=== PATIENT | female | born 1985 | race Two or more races ===

== ENCOUNTER 2024-07-24 13:54 | Emergency (ER) | payer MEDICAID, SELFPAY ==
[2024-07-24 13:55] VITALS: BMI 35.3
[2024-07-24 14:09] VITALS: BP 122/78; PULSE 77; RESP 18; TEMP 37.2; O2SAT 98
--- NOTE | 2024-07-24 14:39 | XR_ITS ---
Examination: PA lateral chest 2 views Technique: Upright PA lateral chest 2 views Exam date 9: July 24, 2024, 1449 hrs. Comparison July 20, 2022. Indications: Chest pain beginning 5 days ago. Findings: Normal heart size Minor atelectasis left base No pneumonia or pulmonary edema Stable tiny granuloma right upper lobe Impression: Minor atelectasis left base No pneumonia or pulmonary edema
--- NOTE | 2024-07-24 14:41 | PD.EDBACK ---
ED Back Injury Pain RME/HPI General Chief Complaint: Back Pain/Injury Stated Complaint: CHEST/BACK PAIN SINCE WITH NAUSEA Time Seen by Provider: 07/24/24 13:56 Arrival date/time: 07/24/24 13:54 This is a 38-year-old female that comes in with complaint of chest pain and nausea that started a couple days ago. Patient states that she was having a cough and shortness of breath and was seen by her primary doctor and was given albuterol and prednisone. Patient states those symptoms are better but she still having some chest pain. Patient also complains of nausea. Patient denies any past medical history. Related Data Home Medications ?Medication ?Instructions ?Recorded ?Confirmed amoxicillin 500 mg capsule 500 mg PO BID 07/20/22 07/20/22 clarithromycin 500 mg tablet 500 mg PO BID 07/20/22 07/20/22 escitalopram oxalate 10 mg tablet 10 mg PO QDAY 07/20/22 07/20/22 ibuprofen 800 mg tablet 800 mg PO Q8H PRN Pain 07/20/22 07/20/22 omeprazole 20 mg capsule,delayed 20 mg PO BID 07/20/22 07/20/22 release pseudoephedrine HCl 30 mg tablet 30 mg PO Q6H PRN Allergy Symptoms 07/20/22 07/20/22 (Sudafed) Previous Rx's ?Medication ?Instructions ?Recorded ondansetron 4 mg disintegrating 4 mg PO Q8H PRN nausea and 10/14/23 tablet vomiting #30 tabs kgvkysjalp-odyoetbrnokpx-nxpsmqxt 1 cap PO Q6H PRN headache #30 caps 12/07/23 50 mg-300 mg-40 mg capsule (Fioricet) ibuprofen 600 mg tablet 600 mg PO Q6H PRN pain #30 tabs 12/07/23 ibuprofen 600 mg tablet 600 mg PO TID PRN pain #14 tabs 12/07/23 ondansetron 4 mg disintegrating 4 mg PO Q6H PRN nausea and 12/07/23 tablet vomiting #10 tabs ibuprofen 800 mg tablet 800 mg PO Q6H PRN pain #14 tabs 07/24/24 Allergies Allergy/AdvReac Type Severity Reaction Status Date / Time quetiapine Allergy Severe Swelling Verified 07/24/24 13:58 of Lip/Tongue/Throat Course Orders Category Date Time Status EKG (ED ONLY) *Do not use* NOW Care 07/24/24 14:39 Completed EKG (ED Only) Stat Exams 07/24/24 14:39 Ordered XR chest 2V Stat Exams 07/24/24 14:39 Completed HCG Qualitative,Urine Stat Lab 07/24/24 15:04 Completed Urinalysis, C/S if Indicated Stat Lab 07/24/24 15:04 Completed Ibuprofen Tab [Motrin Tab] Med 07/24/24 14:41 Discontinued 800 mg PO X1 ONE Ondansetron Odt [Zofran Odt] Med 07/24/24 14:40 Discontinued 4 mg PO X1 ONE Vital Signs Vital signs: Vital Signs Temperature 98.9 F 07/24/24 14:09 Pulse Rate 77 07/24/24 14:09 Respiratory Rate 18 07/24/24 14:09 Blood Pressure 122/78 07/24/24 14:09 Pulse Oximetry (%) 98 07/24/24 14:09 Oxygen Delivery Method Room Air 07/24/24 14:09 Back Pain / Injury MDM Narrative MDM Narrative:: chest x ray shows: Findings: Normal heart size Minor atelectasis left base No pneumonia or pulmonary edema Stable tiny granuloma right upper lobe Impression: Minor atelectasis left base No pneumonia or pulmonary edema No pneumonia seen on x-ray. Patient given Tylenol and ibuprofen for pain. Patient told to continue taking steroids as prescribed by primary provider. Follow-up with primary provider in 1 to 2 days. Come back to the emergency room symptoms change or worsen Medications / Prescriptions Medication administrations:: Medication Administration History Discontinued Medications Ibuprofen (Ibuprofen Tab 400 Mg Tablet) 800 mg PO X1 ONE Stop: 07/24/24 14:42 Last Admin: 07/24/24 15:04 Dose: 800 mg Documented By: ESPERANZA Ondansetron HCl (Ondansetron Odt 4 Mg Tabrap) 4 mg PO X1 ONE; Protocol Stop: 07/24/24 14:41 Last Admin: 07/24/24 15:04 Dose: 4 mg Documented By: ESPERANZA Discharge Plan Plan Patient Disposition: HOME (Self Care) Patient condition on transfer: Stable Prescriptions/Referrals Prescriptions/Med Rec: New ibuprofen 800 mg tablet 800 mg PO Q6H PRN (Reason: pain) Qty: 14 0RF No Action amoxicillin 500 mg Capsule 500 mg PO BID ibuprofen 800 mg Tablet 800 mg PO Q8H PRN (Reason: Pain) clarithromycin 500 mg Tablet 500 mg PO BID omeprazole 20 mg Capsule,Delayed Release(Dr/Ec) 20 mg PO BID pseudoephedrine HCl [Sudafed] 30 mg Tablet 30 mg PO Q6H PRN (Reason: Allergy Symptoms) escitalopram oxalate 10 mg Tablet 10 mg PO QDAY pfwrstsiko-triskzovocstg-pthj [Fioricet] 50-300-40 mg capsule 1 cap PO Q6H PRN (Reason: headache) Qty: 30 0RF ibuprofen 600 mg tablet 600 mg PO Q6H PRN (Reason: pain) Qty: 30 0RF ondansetron 4 mg tablet,disintegrating 4 mg PO Q6H PRN (Reason: nausea and vomiting) Qty: 10 0RF ondansetron 4 mg tablet,disintegrating 4 mg PO Q8H PRN (Reason: nausea and vomiting) Qty: 30 0RF ibuprofen 600 mg tablet 600 mg PO TID PRN (Reason: pain) Qty: 14 0RF Referrals: Jessica Carroll FNP [Primary Care Provider] - In 1 week Problem List Clinical Impression: RAD (reactive airway disease), URI (upper respiratory infection) Patient/Caregiver Discharge Instructions Discharge Activity: activity as tolerated Education Materials: ED URI, Viral, No Abx (Adult) Additional Instructions: Continue using inhaler and steroids as directed. Follow-up with primary provider in 1 to 2 days. Come back to the emergency room if symptoms change or worsen Print Language: Nepali Stand Alone Forms: Faye Award Info., Patient Portal Info Letter VANDANA/JESSENIA Supervising Physician VANDANA/JESSENIA Supervising Physician: guerline
[2024-07-24] MEDS: ONDANSETRON ODT 4 MG TABRAP PO (15:04)
[2024-07-24] MEDS: IBUPROFEN TAB 400 MG TABLET 800 MG PO (15:04)
[2024-07-24 15:17] LABS: Collection Type, Urine Pedi-Bag
[2024-07-24 15:27] LABS: Bacteria,Urine Rare; Bilirubin,Urine Negative (Negative); Blood,Urine Negative (Negative); Clarity,Urine Clear (Clear/Hazy); Color,Urine Lt-Yellow (Lt Yel-Yel); Culture Indicated,Urine Not Indicated; Glucose, Urine Negative (Negative); Ketones,Urine Negative (Negative); Leukocyte Esterase,Urine Positive (Negative); Nitrite,Urine Negative (Negative); PH,Urine 6.5 (5.0-7.0); Protein,Urine Negative (Neg - Trace); RBC,Urine 3 /hpf (0-3); Specific Gravity,Urine 1.016 (1.001-1.035); Squamous Epithelial Cell,Urine 2 /hpf (0-5); Urobilinogen,Urine Negative mg/dL (0.0-1.0); WBC,Urine 2 /hpf (0-5)
[2024-07-24 15:35] LABS: HCG Qualitative,Urine Positive
== END 2024-07-24 15:55 | disposition home or self-care (01) ==
PROVIDERS: Nurse Practitioner Family; Emergency Provider Emergency Medicine; PCP Registered Nurse
DX: J45.909 Unspecified asthma, uncomplicated (principal); J06.9 Acute upper respiratory infection, unspecified
CPT/HCPCS: 71046; 81001; 81025; 87400; 87811; 93005; 99283; Q0162; A9270

== ENCOUNTER 2024-08-06 13:44 | Emergency (ER) | payer MEDICAID, SELFPAY ==
[2024-08-06 14:22] VITALS: BP 118/80; PULSE 76; RESP 18; TEMP 37.2; O2SAT 96; BMI 32.3
--- NOTE | 2024-08-06 14:29 | PD.EDRME ---
Rapid Medical Screening Exam RME Arrival date/time: 08/06/24 13:44 This is a 38-year-old female that comes in with complaints of vaginal bleeding and abdominal pain. Patient was recently told that she was approximately 5 weeks . Patient thinks her last menstrual period was June 23. Patient is a 6 para 3 patient has had 2 previous miscarriages. I have greeted and performed a focused initial assessment of this patient. Initial appropriate labs ordered at this time. A comprehensive ED assessment and evaluation of the patient and analysis of all test and completion of medical decision making process will be conducted by additional ED provider. Chief Complaint: Vaginal Bleeding Time Seen by Provider: 08/06/24 13:51 Vital signs: Vital Signs Temperature 99 F 08/06/24 14:22 Pulse Rate 76 08/06/24 14:22 Respiratory Rate 18 08/06/24 14:22 Blood Pressure 118/80 08/06/24 14:22 Pulse Oximetry (%) 96 08/06/24 14:22 Oxygen Delivery Method Room Air 08/06/24 14:22
--- NOTE | 2024-08-06 14:30 | XR_ITS ---
Examination: OB Transvaginal ultrasound of the pelvis, complete Technique: Transvaginal sonographic images pelvis performed using hdez scale imaging Exam date and time: August 06, 2024 1617 hours INDICATIONS: Onset of vaginal bleeding today FINDINGS: Uterus 9.4 cm endometrial stripe endometrial stripe 0.8 cm No uterine mass or intrauterine gestation Right ovary 2.4 cm lateral flow Left ovary 2.7 cm arterial flow IMPRESSION: No uterine or adnexal mass
[2024-08-06 15:07] LABS: Collection Type, Urine Voided
[2024-08-06 15:31] LABS: Alanine Aminotransferase 15 U/L (10-49); Albumin/Globulin Ratio 1.4 (1.2-2.2); Alkaline Phosphatase 72 U/L (46-116); Anion Gap 10 (7-16); Aspartate Amino Transferase 17 U/L (0-34); BUN/Creatinine Ratio 12 Ratio (12-20); Beta HCG,Quantitative 105 mIU/mL (<5.0); Bilirubin,Total 0.5 mg/dL (0.3-1.2); Blood Urea Nitrogen 7 mg/dL (9-23); Calcium 9.3 mg/dL (8.3-10.6); Calcium (Corrected) 9.3 mg/dL (8.5-10.1); Carbon Dioxide 21.7 mMol/L (20.0-31.0); Chloride 110 mMol/L (98-107); Creatinine (Component) 0.6 mg/dL (0.6-1.3); Globulin 2.9 gm/dL (2.3-3.5); Glucose 116 mg/dL (74-106); Osmolality,Calculated 282 (275-295); Sodium 142 mMol/L (136-145); Total Protein 6.9 gm/dL (5.7-8.2); eGFR > 60 See Note
[2024-08-06 15:32] LABS: Basophils # (Auto) 0.1 Thou/mm3 (0.0-0.2); Basophils % (Auto) 1 % (0-2.5); Eosinophils # (Auto) 0.1 Thou/mm3 (0.0-0.5); Eosinophils % (Auto) 1 % (0-10); Hematocrit 38.2 % (36.0-46.0); Hemoglobin 13.5 g/dL (12.0-16.0); Immature Granulocytes % (Auto) 0 % (0-0); Immature Granulocytes Auto 0.03 Thou/mm3 (0.00-0.00); Lymphocytes # (Auto) 2.3 Thou/mm3 (1.0-4.8); Lymphocytes % (Auto) 22 % (10-50); Mean Corpuscular HGB Conc 35.3 g/dl (31.0-37.0); Mean Corpuscular Volume 85 fL (80-100); Monocytes # (Auto) 0.8 Thou/mm3 (0.0-0.8); Monocytes % (Auto) 8 % (0-12); Neutrophils # (Auto) 7.1 Thou/mm3 (1.8-7.7); Neutrophils % (Auto) 68 % (37-80); Nucleated Red Blood Cell % 0 /100 WBC (0); Platelet Count 262 Thou/mm3 (140-440); RDW Standard Deviation 42.4 fL (36.4-46.3); White Blood Count 10.4 Thou/mm3 (3.6-11.0)
[2024-08-06 16:27] LABS: Bilirubin,Urine Negative (Negative); Blood,Urine 3+ (Negative); Clarity,Urine Turbid (Clear/Hazy); Color,Urine Yellow (Lt Yel-Yel); Culture Indicated,Urine Not Indicated; Glucose, Urine Negative (Negative); Ketones,Urine Negative (Negative); Leukocyte Esterase,Urine Positive (Negative); Nitrite,Urine Negative (Negative); Protein,Urine 1+ (Neg - Trace); RBC,Urine 1031 /hpf (0-3); Specific Gravity,Urine 1.029 (1.001-1.035); Squamous Epithelial Cell,Urine 3 /hpf (0-5); Urobilinogen,Urine Negative mg/dL (0.0-1.0); WBC,Urine 9 /hpf (0-5)
[2024-08-06 16:44] VITALS: BP 117/78; PULSE 66; RESP 18; TEMP 36.8; O2SAT 99
[2024-08-06 18:45] VITALS: BP 113/75; PULSE 61; RESP 18; TEMP 36.8; O2SAT 98
[2024-08-06 19:24] VITALS: BP 122/74; PULSE 60; RESP 16; TEMP 36.7; O2SAT 99
--- NOTE | 2024-08-06 19:44 | PD.EDVAGBL ---
ED OB Contraction Preg RMI/HPI General Chief complaint: Vaginal Bleeding Stated complaint: VAGINAL BLEEDING AM PAIN X YESTERDAY; 5 WKS PREG Time Seen by Provider: 08/06/24 13:51 Arrival date/time: 08/06/24 13:44 RME / HPI RME / HPI Narrative: This is a 38-year-old female with past medical history of spontaneous abortions that comes in with complaints of vaginal bleeding and abdominal pain for 1 day. Patient had visited her PCP, where her beta-hCG test was positive, and underwent transvaginal ultrasound, and was not found to have any intrauterine by the ultrasound today, and was told by cell phone repair technician that she might be having ectopic . However, she did not receive any official read by her PCP. This morning, when she started vaginal bleeding, she also noticed a different type of small mass exposing out of her vagina, which she believes is most likely the fetus. She has changed 2 tampons until now. She admitted urinary frequency, and urgency. She denies any headache, lightheadedness, nausea or vomiting, chest pain, SOB, any changes in bowel habit, leg swelling, fever or chills, or any vomiting. Related Data Home Medications ?Medication ?Instructions ?Recorded ?Confirmed amoxicillin 500 mg capsule 500 mg PO BID 07/20/22 07/20/22 clarithromycin 500 mg tablet 500 mg PO BID 07/20/22 07/20/22 escitalopram oxalate 10 mg tablet 10 mg PO QDAY 07/20/22 07/20/22 ibuprofen 800 mg tablet 800 mg PO Q8H PRN Pain 07/20/22 07/20/22 omeprazole 20 mg capsule,delayed 20 mg PO BID 07/20/22 07/20/22 release pseudoephedrine HCl 30 mg tablet 30 mg PO Q6H PRN Allergy Symptoms 07/20/22 07/20/22 (Sudafed) Previous Rx's ?Medication ?Instructions ?Recorded ondansetron 4 mg disintegrating 4 mg PO Q8H PRN nausea and 10/14/23 tablet vomiting #30 tabs baxpztyyvx-brugsmhdwgwpx-lmnrwbix 1 cap PO Q6H PRN headache #30 caps 12/07/23 50 mg-300 mg-40 mg capsule (Fioricet) ibuprofen 600 mg tablet 600 mg PO Q6H PRN pain #30 tabs 12/07/23 ibuprofen 600 mg tablet 600 mg PO TID PRN pain #14 tabs 12/07/23 ondansetron 4 mg disintegrating 4 mg PO Q6H PRN nausea and 12/07/23 tablet vomiting #10 tabs ibuprofen 800 mg tablet 800 mg PO Q6H PRN pain #14 tabs 07/24/24 Allergies Allergy/AdvReac Type Severity Reaction Status Date / Time quetiapine Allergy Severe Swelling Verified 08/06/24 13:47 of Lip/Tongue/Throat Review of Systems Review of Systems Systems Reviewed: All systems reviewed, normal except as documented Past Medical History Past Medical History NEUROLOGIC: Positive Migraine; Negative Neurological Disorders, Cerebrovascular Accident or Transient Ischemic Attacks (TIA) CARDIAC: Negative Cardiac Disorders, Myocardial Infarction, Cardiac Arrhythmia or Congestive Heart Failure RESPIRATORY: Positive Pneumonia; Negative Chronic Obstructive Pulmonary Disease (COPD) or Asthma GASTROINTESTINAL: Positive Gastrointestinal Disorders and Gastroesophageal Reflux Disease (H. Pylori); Negative Liver Cancer or Pancreatic Cancer GENITOURINARY: Negative Genitourinary Disorders or Renal Disease REPRODUCTIVE: Negative Breast Cancer or Endometriosis MUSCULOSKELETAL: Negative Musculoskeletal Disorders ENT: Negative Blind or Deafness ENDOCRINE: Negative Endocrine Disorders, Diabetes Mellitus Type 1 or Diabetes Mellitus Type 2 HEMATOLOGIC: Negative Blood Disorders, Anemia or Sickle Cell Disease PSYCHO/SOCIAL: Positive Depression and Anxiety OTHER HISTORY: Negative Down Syndrome, Developmental Delay or Breast Cancer Social History SMOKING STATUS: Never smoker SUBSTANCE USE: does not use ED Exam Narrative Physical exam: General: No acute distress, Alert and Oriented x 3 HEENT: Moist mucous membranes, oropharynx clear Neck: Supple, No masses, No JVD CVS: S1S2 Regular rate and rhythm, No murmurs, rubs or gallops Lungs: Clear to auscultation with no accessory use, no wheeze no rhonchi Abd: Soft, mild to moderate tenderness over right lower quadrant/ND, +BS, no organomegaly Ext: No edema, warm and well perfused Skin: No rash Psych: Appropriate mood and affect Course Quality Measures none Orders Category Date Time Status US OB transvaginal Stat Exams 08/06/24 14:30 Completed ABO/RH Type - Stat Lab 08/06/24 14:48 Completed Beta HCG,Quantitative Stat Lab 08/06/24 14:48 Completed CBC Stat Lab 08/06/24 14:48 Completed Comprehensive Metabolic Panel Stat Lab 08/06/24 14:48 Completed Urinalysis, C/S if Indicated Stat Lab 08/06/24 14:59 Completed Vital Signs Vital signs: Vital Signs Temperature 99 F 08/06/24 14:22 Pulse Rate 76 08/06/24 14:22 Respiratory Rate 18 08/06/24 14:22 Blood Pressure 118/80 08/06/24 14:22 Pulse Oximetry (%) 96 08/06/24 14:22 Oxygen Delivery Method Room Air 08/06/24 14:22 Vaginal Bleeding MDM Narrative MDM Narrative: This is a 38-year-old female with past medical history of spontaneous abortions that comes in with complaints of vaginal bleeding and abdominal pain for 1 day. Patient had visited her PCP, where her beta-hCG test was positive, and underwent transvaginal ultrasound, and was not found to have any intrauterine by the ultrasound today, and was told by cell phone repair technician that she might be having ectopic . However, she did not receive any official read by her PCP. This morning, when she started vaginal bleeding, she also noticed a different type of small mass exposing out of her vagina, which she believes is most likely the fetus. She has changed 2 tampons until now. She admitted urinary frequency, and urgency. She denies any headache, lightheadedness, nausea or vomiting, chest pain, SOB, any changes in bowel habit, leg swelling, fever or chills, or any vomiting. In the ED her vitals were BP 118/80, pulse 76, RR 18, temperature 99, saturating 96% on room air. Labs revealed white count 10.4, hemoglobin 13.5, chemistry panel revealed sodium 142, potassium 4.0, chloride 110, blood sugar 116, and beta-hCG 105. UA revealed turbid urine with 1+ protein, 3+ blood, leukocyte esterase positive, RBC 1031, WBC 9. Transvaginal ultrasound revealed No uterine or adnexal mass. Patient data External records reviewed:: [facility] previous records Clinical information provided by:: patient Social determinants that could affect healthcare access:: none Patient has the following chronic illnesses:: See above How is presenting disease/condition affected by chronic disease/condition?: uneffected by Evaluation data The following diagnostics were reviewed and interpreted by me:: lab results and radiology exam(s) Lab and/or radiology exams considered but not ordered:: None Interpretation Summary: See above Medications / Prescriptions Medications or Prescriptions considered but not ordered:: None Medication administrations:: None Consultations Consultation(s) initiated? (list below): No Diagnosis Vaginal Bleeding Differential Diagnosis: incomplete , ectopic without intrauterine and other (Spontaneous complete ) Most likely diagnosis given after review of the tests above:: Spontaneous complete Admission Indicated Admission indicated?: not indicated Explain why admission is indicated or not indicated:: Patient's vitals stable, labs stable, and stable to be discharged. Admission Request Was there a request for admission?: No Disposition Plan Disposition Plan: Discharge Discharge Attestation Discharge Attestation: The patient and all family members were given an opportunity to ask questions and understood the discharge instructions. Discharge instructions specifically effects, indications for sooner follow up or return to the emergency department, and the expected course of current diagnosis. Patient condition: Stable Discharge Plan Plan Patient Disposition: HOME (Self Care) Prescriptions/Referrals Prescriptions/Med Rec: No Action amoxicillin 500 mg Capsule 500 mg PO BID ibuprofen 800 mg Tablet 800 mg PO Q8H PRN (Reason: Pain) clarithromycin 500 mg Tablet 500 mg PO BID omeprazole 20 mg Capsule,Delayed Release(Dr/Ec) 20 mg PO BID pseudoephedrine HCl [Sudafed] 30 mg Tablet 30 mg PO Q6H PRN (Reason: Allergy Symptoms) escitalopram oxalate 10 mg Tablet 10 mg PO QDAY nycergahcm-mlxlyaqokfbll-viyd [Fioricet] 50-300-40 mg capsule 1 cap PO Q6H PRN (Reason: headache) Qty: 30 0RF ibuprofen 600 mg tablet 600 mg PO Q6H PRN (Reason: pain) Qty: 30 0RF ondansetron 4 mg tablet,disintegrating 4 mg PO Q6H PRN (Reason: nausea and vomiting) Qty: 10 0RF ondansetron 4 mg tablet,disintegrating 4 mg PO Q8H PRN (Reason: nausea and vomiting) Qty: 30 0RF ibuprofen 600 mg tablet 600 mg PO TID PRN (Reason: pain) Qty: 14 0RF ibuprofen 800 mg tablet 800 mg PO Q6H PRN (Reason: pain) Qty: 14 0RF Referrals: Jessica Carroll FNP [Primary Care Provider] - In 1 week Problem List Clinical Impression: Complete spontaneous Patient/Caregiver Discharge Instructions Discharge Activity: activity as tolerated Education Materials: ED MISCARRIAGE Completed Additional Instructions: You were discharged by Dr. Padilla with the following recommendations: Please come back to ED in 48 hours, and get your CBC and serum beta-hCG level done and compare with the current level. Please follow-up with your PCP within 1 week of discharge You have been started on: -Tylenol 325 mg up to 4 times a day as needed for abdominal pain -Recommended to get started on family-planning measures by PCP Continue taking all other medicines as prescribed -Recommended to return back to emergency department if your symptoms persists or worsens Print Language: Congolese Stand Alone Forms: Faye Award Info., Patient Portal Info Letter MD Attestation Attestation I, Dr. Jacques, have reviewed the history, exam, and assessment of the patient. I have evaluated the patient independently and agree with the plan of care documented by the resident Dr. Padilla. All diagnostic studies were reviewed and discussed. I confirm the diagnosis as documented by the resident. I was present during the Medical Decision Making for this patient. The patient?s plan of care was created between myself and the resident and consistent with our discussion of the patient?s case.
[2024-08-06 20:07] VITALS: RESP 18
== END 2024-08-06 20:08 | disposition home or self-care (01) ==
PROVIDERS: Nurse Practitioner Family; Emergency Provider Student in an Organized Health Care Education/Training Program; PCP Registered Nurse
DX: O03.9 Complete or unspecified spontaneous abortion without complication (principal)
CPT/HCPCS: 36415; 76817; 80053; 81001; 84702; 85025; 86900; 86901; 87400; 87811; 99284

== ENCOUNTER 2024-09-20 21:44 | Emergency (ER) | payer MEDICAID, SELFPAY ==
[2024-09-20 21:45] VITALS: BP 129/85; PULSE 73; RESP 20; TEMP 37.2; O2SAT 99
--- NOTE | 2024-09-20 21:51 | EKG_ITS ---
[facility] Test Date: 2024-09-20 Pat Name: JAVON ENGDepartment: Room: - Gender: Female Critical Care Paramedic: : 1985 Requested By: Felice Buenrostro Order Number: [id number] Reading MD: Felice Buenrostro Measurements Intervals [place] Rate: 71 P: 42 [place]: 140 QRS: 34 QRSD: 102 T: 48 QT: 338 QTc: 367 Interpretive Statements SINUS RHYTHM Compared to ECG 07/20/2022 16:13:55 No significant changes /store/S0/[id number].pdf
--- NOTE | 2024-09-20 22:13 | XR_ITS ---
Examination: PA lateral chest 2 views TECHNIQUE: Upright PA and lateral chest 2 views Date and time: September 20, 2024 2236 hours INDICATIONS: Chest pain beginning 2 weeks ago FINDINGS: Comparison July 24, 2024 Normal heart size. Lungs are clear. The osseous structures are intact IMPRESSION: No active disease
--- NOTE | 2024-09-20 22:39 | PD.EDCHEST ---
ED Chest Pain RME/HPI General Chief Complaint: Chest Pain Stated Complaint: CHEST AREA PAIN RADIATING TO BACK Time Seen by Provider: 09/20/24 22:13 Arrival date/time: 09/20/24 21:44 38F with history of psych presents to ED with 2 weeks of chest pain that radiates to back. Patient states this feels like when she had PNA, but denies cough. Limitations: no limitations Related Data Home Medications ?Medication ?Instructions ?Recorded ?Confirmed amoxicillin 500 mg capsule 500 mg PO BID 07/20/22 07/20/22 clarithromycin 500 mg tablet 500 mg PO BID 07/20/22 07/20/22 escitalopram oxalate 10 mg tablet 10 mg PO QDAY 07/20/22 07/20/22 ibuprofen 800 mg tablet 800 mg PO Q8H PRN Pain 07/20/22 07/20/22 omeprazole 20 mg capsule,delayed 20 mg PO BID 07/20/22 07/20/22 release pseudoephedrine HCl 30 mg tablet 30 mg PO Q6H PRN Allergy Symptoms 07/20/22 07/20/22 (Sudafed) Previous Rx's ?Medication ?Instructions ?Recorded ondansetron 4 mg disintegrating 4 mg PO Q8H PRN nausea and 10/14/23 tablet vomiting #30 tabs dacgpbqbrz-yftsnmufudsgz-aznudzdy 1 cap PO Q6H PRN headache #30 caps 12/07/23 50 mg-300 mg-40 mg capsule (Fioricet) ibuprofen 600 mg tablet 600 mg PO Q6H PRN pain #30 tabs 12/07/23 ibuprofen 600 mg tablet 600 mg PO TID PRN pain #14 tabs 12/07/23 ondansetron 4 mg disintegrating 4 mg PO Q6H PRN nausea and 12/07/23 tablet vomiting #10 tabs ibuprofen 800 mg tablet 800 mg PO Q6H PRN pain #14 tabs 07/24/24 Allergies Allergy/AdvReac Type Severity Reaction Status Date / Time quetiapine Allergy Severe Swelling Verified 09/20/24 21:46 of Lip/Tongue/Throat Review of Systems Review of Systems Systems Reviewed: All systems reviewed, normal except as documented Constitutional Constitutional: Reports system reviewed and no additional complaints, except as documented, Denies fever(s) and Denies headache(s) ENT Ears, Nose, Mouth, and Throat: Denies disequilibrium and Denies headache(s) Cardiovascular Cardiovascular: Reports system reviewed and no additional complaints, except as documented, Reports as per HPI, Reports chest pain and Denies dyspnea Respiratory Respiratory: Reports system reviewed and no additional complaints, except as documented, Denies cough and Denies dyspnea Gastrointestinal Gastrointestinal: Reports system reviewed and no additional complaints, except as documented, Denies abdominal pain, Denies nausea and Denies vomiting Neurologic Neurologic: Reports system reviewed and no additional complaints, except as documented, Denies confusion, Denies disequilibrium and Denies headache(s) Psychiatric Psychiatric: Denies confusion Past Medical History Past Medical History NEUROLOGIC: Positive Migraine; Negative Neurological Disorders, Cerebrovascular Accident or Transient Ischemic Attacks (TIA) CARDIAC: Negative Cardiac Disorders, Myocardial Infarction, Cardiac Arrhythmia or Congestive Heart Failure RESPIRATORY: Positive Pneumonia; Negative Chronic Obstructive Pulmonary Disease (COPD) or Asthma GASTROINTESTINAL: Positive Gastrointestinal Disorders and Gastroesophageal Reflux Disease (H. Pylori); Negative Liver Cancer or Pancreatic Cancer GENITOURINARY: Negative Genitourinary Disorders or Renal Disease REPRODUCTIVE: Negative Breast Cancer or Endometriosis MUSCULOSKELETAL: Negative Musculoskeletal Disorders ENT: Negative Blind or Deafness ENDOCRINE: Negative Endocrine Disorders, Diabetes Mellitus Type 1 or Diabetes Mellitus Type 2 HEMATOLOGIC: Negative Blood Disorders, Anemia or Sickle Cell Disease PSYCHO/SOCIAL: Positive Depression and Anxiety OTHER HISTORY: Negative Down Syndrome, Developmental Delay or Breast Cancer Social History SMOKING STATUS: Never smoker SUBSTANCE USE: does not use ED Exam General Limitations: Present no limitations General appearance: Present alert and in no apparent distress Head Head exam: Present atraumatic Eye Eye exam: Present normal appearance, PERRL and EOMI ENT ENT exam: Present normal exam, normal oropharynx and mucous membranes moist Neck Neck exam: Present normal inspection, full ROM and trachea midline Chest Chest inspection: Present normal inspection and symmetric chest wall rise Respiratory Respiratory exam: Present normal lung sounds bilaterally Cardiovascular Cardiovascular exam: Present regular rate, normal rhythm and normal heart sounds Abdominal Exam Abdominal exam: Present soft and normal bowel sounds Extremities Exam Extremities exam: Present normal inspection and full ROM Back Exam Back exam: Present normal inspection and full ROM Neurological Exam Neurological exam: Present alert, oriented X3 and CN II-XII intact Psychiatric Psychiatric exam: Present normal affect and normal mood Skin Skin exam: Present warm, dry, intact and normal color Course Quality Measures none Orders Category Date Time Status EKG (ED ONLY) *Do not use* NOW Care 09/20/24 21:51 Completed EKG (ED Only) Stat Exams 09/20/24 21:51 Draft XR chest 2V Stat Exams 09/20/24 22:13 Completed CBC Stat Lab 09/20/24 22:21 Completed Comprehensive Metabolic Panel Stat Lab 09/20/24 22:21 Completed D-Dimer Stat Lab 09/20/24 22:21 Completed Troponin I Stat Lab 09/20/24 22:21 Completed Vital Signs Vital signs: Vital Signs Temperature 98.9 F 09/20/24 21:45 Pulse Rate 73 09/20/24 21:45 Respiratory Rate 20 09/20/24 21:45 Blood Pressure 129/85 H 09/20/24 21:45 Pulse Oximetry (%) 99 09/20/24 21:45 Oxygen Delivery Method Room Air 09/20/24 21:45 O2 at 99% on RA and WNLs Chest Pain MDM Narrative MDM Narrative:: 38F with history of psych presents to ED with 2 weeks of chest pain that radiates to back. Patient states this feels like when she had PNA, but denies cough. Physical exam reveals clear lungs. RRR. Normal WOB. Patient is afebrile, calm, and alert. EKG is NSR. CXR normal. Normal trop. Normal D-dimer. CBC and CMP unremarkable. Patient data External records reviewed:: [facility] previous records Clinical information provided by:: patient Social determinants that could affect healthcare access:: mental health Patient has the following chronic illnesses:: psych How is presenting disease/condition affected by chronic disease/condition?: exacerbated by Evaluation data The following diagnostics were reviewed and interpreted by me:: lab results, radiology exam(s) and EKG tracing(s) Lab and/or radiology exams considered but not ordered:: ordered Interpretation Summary: above Medications / Prescriptions Medications or Prescriptions considered but not ordered:: not ordered Medication administrations:: n/a Consultations Consultation(s) initiated? (list below): No Diagnosis Chest Pain Differential Diagnosis: fracture of rib, pneumothorax, stable angina, unstable angina pectoris, atypical chest pain, st elevation myocardial infarction, costochondritis, chest pain and biliary colic Most likely diagnosis given after review of the tests above:: atypical chest pain Admission Indicated Admission indicated?: not indicated Admission Request Was there a request for admission?: No Disposition Plan Disposition Plan: Discharge Discharge Attestation Discharge Attestation: The patient and all family members were given an opportunity to ask questions and understood the discharge instructions. Discharge instructions specifically effects, indications for sooner follow up or return to the emergency department, and the expected course of current diagnosis. Patient condition: Stable Discharge Plan Plan Patient Disposition: HOME (Self Care) Discharge Disposition comment: Stable Prescriptions/Referrals Prescriptions/Med Rec: No Action amoxicillin 500 mg Capsule 500 mg PO BID ibuprofen 800 mg Tablet 800 mg PO Q8H PRN (Reason: Pain) clarithromycin 500 mg Tablet 500 mg PO BID omeprazole 20 mg Capsule,Delayed Release(Dr/Ec) 20 mg PO BID pseudoephedrine HCl [Sudafed] 30 mg Tablet 30 mg PO Q6H PRN (Reason: Allergy Symptoms) escitalopram oxalate 10 mg Tablet 10 mg PO QDAY [id number]-lhob [Fioricet] 50-300-40 mg capsule 1 cap PO Q6H PRN (Reason: headache) Qty: 30 0RF ibuprofen 600 mg tablet 600 mg PO Q6H PRN (Reason: pain) Qty: 30 0RF ondansetron 4 mg tablet,disintegrating 4 mg PO Q6H PRN (Reason: nausea and vomiting) Qty: 10 0RF ondansetron 4 mg tablet,disintegrating 4 mg PO Q8H PRN (Reason: nausea and vomiting) Qty: 30 0RF ibuprofen 600 mg tablet 600 mg PO TID PRN (Reason: pain) Qty: 14 0RF ibuprofen 800 mg tablet 800 mg PO Q6H PRN (Reason: pain) Qty: 14 0RF Referrals: No Primary/Family,Physician [Primary Care Provider] - In 1 week Problem List Clinical Impression: Atypical chest pain Patient/Caregiver Discharge Instructions Education Materials: ED Chest Pain, Uncertain Cause Additional Instructions: Please follow-up with PCP within 24-48 hours and return immediately if symptoms worsen. Print Language: Setswana Stand Alone Forms: Patient Portal Info Letter VANDANA/JESSENIA Supervising Physician VANDANA/JESSENIA Supervising Physician: Dr. Jean
[2024-09-20 22:42] LABS: Basophils # (Auto) 0.1 Thou/mm3 (0.0-0.2); Basophils % (Auto) 1 % (0-2.5); Eosinophils # (Auto) 0.2 Thou/mm3 (0.0-0.5); Eosinophils % (Auto) 1 % (0-10); Hematocrit 39.6 % (36.0-46.0); Hemoglobin 13.5 g/dL (12.0-16.0); Immature Granulocytes Auto 0.04 Thou/mm3 (0.00-0.00); Lymphocytes # (Auto) 3.8 Thou/mm3 (1.0-4.8); Lymphocytes % (Auto) 32 % (10-50); Mean Corpuscular HGB Conc 34.1 g/dl (31.0-37.0); Mean Corpuscular Hemoglobin 29.4 pg (25.0-35.0); Mean Corpuscular Volume 86 fL (80-100); Monocytes # (Auto) 0.8 Thou/mm3 (0.0-0.8); Monocytes % (Auto) 7 % (0-12); Neutrophils # (Auto) 7.1 Thou/mm3 (1.8-7.7); Neutrophils % (Auto) 59 % (37-80); Nucleated Red Blood Cell # 0.00 Thou/mm3 (0.00-0.00); Nucleated Red Blood Cell % 0 /100 WBC (0); Platelet Count 256 Thou/mm3 (140-440); RDW Standard Deviation 40.7 fL (36.4-46.3); Red Blood Count 4.59 Miln/mm3 (4.00-5.20); White Blood Count 12.0 Thou/mm3 (3.6-11.0)
[2024-09-20 23:04] LABS: D-Dimer < 250 ng/mL (<600)
[2024-09-20 23:05] LABS: Alanine Aminotransferase 34 U/L (10-49); Albumin, Serum 4.3 gm/dL (3.5-5.0); Albumin/Globulin Ratio 1.5 (1.2-2.2); Alkaline Phosphatase 78 U/L (46-116); Anion Gap 7 (7-16); Aspartate Amino Transferase 24 U/L (0-34); BUN/Creatinine Ratio 11 Ratio (12-20); Bilirubin,Total 0.5 mg/dL (0.3-1.2); Blood Urea Nitrogen 10 mg/dL (9-23); Calcium 10.9 mg/dL (8.3-10.6); Calcium (Corrected) 10.9 mg/dL (8.5-10.1); Carbon Dioxide 23.2 mMol/L (20.0-31.0); Chloride 109 mMol/L (98-107); Creatinine (Component) 0.9 mg/dL (0.6-1.3); Globulin 2.9 gm/dL (2.3-3.5); Glucose 123 mg/dL (74-106); Osmolality,Calculated 277 (275-295); Potassium 3.9 mMol/L (3.4-5.1); Sodium 139 mMol/L (136-145); Total Protein 7.2 gm/dL (5.7-8.2); Troponin I < 0.002 ng/mL (0.0-0.045); eGFR > 60 See Note
[2024-09-20 23:12] VITALS: RESP 16
== END 2024-09-20 23:13 | disposition home or self-care (01) ==
PROVIDERS: Physician Assistant; Emergency Provider Emergency Medicine
DX: R07.89 Other chest pain (principal)
CPT/HCPCS: 36415; 71046; 80053; 84484; 85025; 85379; 93005; 99283

== ENCOUNTER → 2024-10-04 | Outpatient (CLI) | payer MEDICAID, SELFPAY ==
--- NOTE | 2024-10-04 09:00 | XR_ITS ---
Examination: Breast ultrasound, unilateral, left complete Date and time of exam: October 04, 2024 0852 hours INDICATIONS: Palpable lump lower left breast note is beginning 2 months ago Technique: Real-time hdez scale ultrasonographic imaging performed left breast including all 4 quadrants as well as nipple retroareolar and axillary region. Findings: 8:00 nodule lobular indistinct margins, 16 x 10 x 10 mm IMPRESSION: BI-RADS Category 4: Suspicious for malignancy Suspicious mass 8:00 position left breast, biopsy is needed to exclude breast carcinoma, this mass is amenable to ultrasound-guided breast biopsy for diagnosis
--- NOTE | 2024-10-04 09:30 | XR_ITS ---
Examination: Diagnostic digital mammography, unilateral, left Computer aided detection 3-D breast Tomosynthesis, unilateral Date and time of exam: October 04, 2024 0911 hours Compared to mammograms dating to June 01, 2023 INDICATIONS: Left breast lump noticed beginning 2 months ago Technique: Nonmagnified MLO, CC views of the left breast have been obtained, reconstructed from 3-D Tomosynthesis images. R2 computer aided detection program utilized for evaluation of suspicious masses and/or abnormal calcifications. 3-D Tomosynthesis images obtained. Findings: The breast is heterogeneously dense, which may obscure small masses Partially indistinct nodule lower inner left breast 8:00 position, corresponding to nodule described on left breast sonogram today, 16 x 10 x 10 mm Impression: BI-RADS category 4: Suspicious for malignancy Suspicious nodule 8:00 position left breast, biopsy is needed to exclude breast carcinoma This mass is amenable to ultrasound-guided breast biopsy for diagnosis
== END | disposition home or self-care (01) ==
PROVIDERS: PCP Registered Nurse; Referring Provider Registered Nurse; Visit Provider Registered Nurse
DX: N63.24 Unspecified lump in the left breast, lower inner quadrant (principal); R92.332 Mammographic heterogeneous density, left breast
CPT/HCPCS: 76641; 77061; 77065; G0279

== ENCOUNTER 2024-10-21 15:50 | Emergency (ER) | payer MEDICAID, SELFPAY ==
[2024-10-21 15:51] VITALS: BMI 32.4
[2024-10-21 16:41] VITALS: BP 113/77; PULSE 94; RESP 18; TEMP 37.3; O2SAT 100
--- NOTE | 2024-10-21 16:48 | XR_ITS ---
Examination: Transvaginal ultrasound of the pelvis, complete Technique: Transvaginal sonographic images pelvis performed using hdez scale imaging Exam date and time: October 21, 2024 1706 hours INDICATIONS: Severe vaginal bleeding beginning one month ago FINDINGS: Uterus 7.6 cm endometrial stripe 0.3 cm, no uterine mass or intrauterine gestation Right ovary 2.0 cm flow small follicles Left ovary 2.1 cm arterial flow small follicles, the largest 12 mm IMPRESSION: No uterine mass or intrauterine gestation.
--- NOTE | 2024-10-21 16:49 | EDRME_ITS ---
Rapid Medical Screening Exam [facility] Arrival date/time: 10/21/24 15:50 CC: Headache weakness and fatigue HPI ongoing for the past 2 months, patient is already on iron, methotrexate, and Augmentin for an infection the patient is not aware of. This is all secondary to patient having heavy menses. Patient is followed by PCP but not by [facility]. Patient states headache that she has today was diminished by Tylenol but has since returned. Patient denies nausea vomiting shortness of breath or difficulty breathing. Chief Complaint: Headache Time Seen by Provider: 10/21/24 16:41 Vital signs: Vital Signs Temperature 99.2 F 10/21/24 16:41 Pulse Rate 94 10/21/24 16:41 Respiratory Rate 18 10/21/24 16:41 Blood Pressure 113/77 10/21/24 16:41 Pulse Oximetry (%) 100 10/21/24 16:41 Oxygen Delivery Method Room Air 10/21/24 16:41
[2024-10-21 17:11] LABS: Basophils # (Auto) 0.0 Thou/mm3 (0.0-0.2); Basophils % (Auto) 0 % (0-2.5); Eosinophils # (Auto) 0.1 Thou/mm3 (0.0-0.5); Eosinophils % (Auto) 1 % (0-10); Hematocrit 31.6 % (36.0-46.0); Hemoglobin 10.3 g/dL (12.0-16.0); Immature Granulocytes Auto 0.02 Thou/mm3 (0.00-0.00); Lymphocytes # (Auto) 2.5 Thou/mm3 (1.0-4.8); Lymphocytes % (Auto) 28 % (10-50); Mean Corpuscular HGB Conc 32.6 g/dl (31.0-37.0); Mean Corpuscular Hemoglobin 28.5 pg (25.0-35.0); Mean Corpuscular Volume 87 fL (80-100); Monocytes # (Auto) 0.7 Thou/mm3 (0.0-0.8); Monocytes % (Auto) 8 % (0-12); Neutrophils # (Auto) 5.6 Thou/mm3 (1.8-7.7); Neutrophils % (Auto) 63 % (37-80); Nucleated Red Blood Cell # 0.00 Thou/mm3 (0.00-0.00); Nucleated Red Blood Cell % 0 /100 WBC (0); Platelet Count 359 Thou/mm3 (140-440); RDW Standard Deviation 40.5 fL (36.4-46.3); Red Blood Count 3.62 Miln/mm3 (4.00-5.20); White Blood Count 8.9 Thou/mm3 (3.6-11.0)
[2024-10-21 17:30] LABS: Alanine Aminotransferase 18 U/L (10-49); Albumin, Serum 4.3 gm/dL (3.5-5.0); Albumin/Globulin Ratio 1.5 (1.2-2.2); Alkaline Phosphatase 74 U/L (46-116); Anion Gap 6 (7-16); Aspartate Amino Transferase 18 U/L (0-34); BUN/Creatinine Ratio 11 Ratio (12-20); Bilirubin,Total 0.4 mg/dL (0.3-1.2); Blood Urea Nitrogen 8 mg/dL (9-23); Calcium 9.5 mg/dL (8.3-10.6); Calcium (Corrected) 9.5 mg/dL (8.5-10.1); Carbon Dioxide 23.0 mMol/L (20.0-31.0); Chloride 113 mMol/L (98-107); Creatinine (Component) 0.7 mg/dL (0.6-1.3); Estimated Creatinine Clearance 113.2 mL/min (>60); Globulin 2.8 gm/dL (2.3-3.5); Glucose 96 mg/dL (74-106); Osmolality,Calculated 281 (275-295); Potassium 4.2 mMol/L (3.4-5.1); Sodium 142 mMol/L (136-145); Total Protein 7.1 gm/dL (5.7-8.2); eGFR > 60 See Note
[2024-10-21] MEDS: ACETAMINOPHEN 500 MG TABLET PO (17:52)
[2024-10-21 18:02] LABS: Collection Type, Urine Clean Catch
[2024-10-21 18:10] LABS: Amorphous Crystals,Urine Present (Absent); Bilirubin,Urine Negative (Negative); Blood,Urine Negative (Negative); Clarity,Urine Turbid (Clear/Hazy); Color,Urine Lt-Yellow (Lt Yel-Yel); Culture Indicated,Urine Not Indicated; Glucose, Urine Negative (Negative); Ketones,Urine Negative (Negative); Leukocyte Esterase,Urine Negative (Negative); Nitrite,Urine Negative (Negative); PH,Urine 7.5 (5.0-7.0); Protein,Urine Negative (Neg - Trace); RBC,Urine 2 /hpf (0-3); Specific Gravity,Urine 1.016 (1.001-1.035); Squamous Epithelial Cell,Urine 1 /hpf (0-5); Urobilinogen,Urine Negative mg/dL (0.0-1.0); WBC,Urine < 1 /hpf (0-5)
[2024-10-21 18:12] LABS: HCG Qualitative,Urine Negative
--- NOTE | 2024-10-21 19:55 | EDNOTE_ITS ---
ED Headache RME/HPI General Chief Complaint: Headache Stated Complaint: SALAZAR, LOW IRON HX Time Seen by Provider: 10/21/24 16:41 Arrival date/time: 10/21/24 15:50 RME / HPI RME / HPI Narrative: 38-year-old female patient with significant history of anemia in the past, came in for evaluation regarding headache, dizziness weakness and fatigue HPI ongoing for the past 2 months, patient is already on iron, methotrexate, and Augmentin for an infection the patient is not aware of. This is all secondary to patient having heavy menses. Patient is followed by PCP but not by [facility]. Patient states headache that she has today was diminished by Tylenol but has since returned. Patient denies nausea vomiting shortness of breath or difficulty breathing. Patient denies any history of recent fall. Denies any fever. Denies any other complaints no medications taken prior to arrival. Related Data Home Medications ?Medication ?Instructions ?Recorded ?Confirmed amoxicillin 500 mg capsule 500 mg PO BID 07/20/2206/23 clarithromycin 500 mg tablet 500 mg PO BID 07/20/22 escitalopram oxalate 10 mg tablet 10 mg PO QDAY 07/20/22 ibuprofen 800 mg tablet 800 mg PO Q8H PRN Pain 07/2007/20/22 omeprazole 20 mg capsule,delayed 20 mg PO BID 07/20/22 07/20/22 release pseudoephedrine HCl 30 mg tablet 30 mg PO Q6H PRN Gavino rgy Symptoms 07/20/22 07/20/22 (Sudafed) Previous Rx's ?Medication ?Instructions ?Recorded ondansetron 4 mg disintegrating 4 mg PO Q8H PRN nausea and 10/14/23 tablet vomiting #30 tabs znbukrczrv-agwycjyletaav-nyayagqa 1 cap PO Q6H PRN hea dache #30 caps 12/07/23 50 mg-300 mg-40 mg capsule (Fioricet) ibuprofen 600 mg tablet 600 mg PO Q6H PRN pain #30 t abs 12/07/23 ibuprofen 600 mg tablet 600 mg PO TID PRN pain #14 t abs 12/07/23 ondansetron 4 mg disintegrating 4 mg PO Q6H PRN nausea and 12/07/23 tablet vomiting #10 tabs ibuprofen 800 mg tablet 800 mg PO Q6H PRN pain #14 t abs 07/24/24 meclizine 50 mg tablet 50 mg PO BID PRN dizziness # 30 tabs 10/21/24 Allergies Allergy/AdvReac Type Severity Reaction Status Date / Time quetiapine Allergy Severe Swelling Verified 09/20/24 21:46 of Lip/Tongue/Throat Review of Systems Review of Systems Narrative Review of Systems: Review of system reviewed and within normal limits except mentioned in HPI ED Exam Narrative Physical exam: VITAL SIGNS: Reviewed. GENERAL APPEARANCE: Alert and interactive, follows commands, no acute distress, HEAD AND FACE: Non-traumatic. ENT: PERRL, pale conjunctiva, eyelid no trauma, Mucous membrane moist. NECK: Supple, nontender, no nuchal rigidity. CHEST: No tenderness, no crepitus, no paradoxical movement, no retractions. LUNGS: Clear, well ventilated, symmetric, no rales, no wheezing, no ronchi, no stridor, good breath sounds bilaterally. HEART: Regular rate, regular rhythm, no murmur, no gallops. ABDOMEN: Soft, positive bowel sounds, nondistended, no guarding, nontender, no rebound, no masses, RECTAL: Deferred. GENITAL: Deferred. NEUROLOGICAL: Gross motor function intact sensory function intact, Appropriate for age. MUSCULOSKELETAL: low back nontender, full range of motion. EXTREMITIES: Nontender, full range of motion. SKIN: Color pink, dry, no rash, no lacerations, no abrasions, no contusions. LYMPHATICS: Deferred. Course Quality Measures none Orders Category Date Time Status US transvaginal Stat Exams 10/21/24 16:48 Completed CBC Stat Lab 10/21/24 16:57 Completed CMP [Comprehensive Metabolic Panel] Stat Lab 10/21/24 16:57 Completed HCG Qualitative,Urine Stat Lab 10/21/24 17:40 Completed Urinalysis, C/S if Indicated Stat Lab 10/21/24 17:40 Completed Acetaminophen Tab [Tylenol ES Tab] Med 10/21/24 16:47 Discontinued 500 mg PO X1 ONE Meclizine HCl [Antivert] Med 10/21/24 19:53 Once 50 mg PO X1 ONE Vital Signs Vital signs: Vital Signs Temperature 99.2 F 10/21/24 16:41 Pulse Rate 94 10/21/24 16:41 Respiratory Rate 18 10/21/24 16:41 Blood Pressure 113/77 08/01/25 16:41 Pulse Oximetry (%) 100 10/21/24 16:41 Oxygen Delivery Method Room Air 10/21/24 16:41 Headache MDM Narrative [facility] Narrative:: 38-year-old female patient with significant history of anemia in the past, came in for evaluation regarding headache, dizziness weakness and fatigue HPI ongoing for the past 2 months, patient is already on iron, methotrexate, and Augmentin for an infection the patient is not aware of. This is all secondary to patient having heavy menses. Patient is followed by PCP but not by [facility]. Patient states headache that she has today was diminished by Tylenol but has since returned. Patient denies nausea vomiting shortness of breath or difficulty breathing. Patient denies any history of recent fall. Denies any fever. Denies any other complaints no medications taken prior to arrival. Patient's workup today significant for slight anemia of 10.3, hematocrit of 31.6. The rest of the labs unremarkable. Ultrasound of the pelvis transvaginal came back unremarkable. Results discussed with the patient. Patient was given Tylenol and meclizine with significant improvement of symptoms. Patient was advised to continue taking iron supplement. Patient data External records reviewed:: None Clinical information provided by:: patient Social determinants that could affect healthcare access:: none Patient has the following chronic illnesses:: History of anemia How is presenting disease/condition affected by chronic disease/condition?: exacerbated by Evaluation data The following diagnostics were reviewed and interpreted by me:: lab results and radiology exam(s) Lab and/or radiology exams considered but not ordered:: None Interpretation Summary: See results [facility] Medications / Prescriptions Medications or Prescriptions considered but not ordered:: None Medication administrations:: Medication Administration History Meclizine HCl (Meclizine Hcl 25 Mg Tablet) 50 mg PO X1 ONE Stop: 10/21/24 19:54 Discontinued Medications Acetaminophen (Acetaminophen 500 Mg Tablet) 500 mg PO X1 ONE Stop: 10/21/24 16:48 Last Admin: 10/21/24 17:52 Dose: 500 mg Documented By: JARROD Meclizine, Tylenol Consultations Consultation(s) initiated? (list below): No Diagnosis Differential diagnosis headache: migraine and headache Most likely diagnosis given after review of the tests above:: Headache, generalized weakness, dizziness Admission Indicated Admission indicated?: not indicated Admission Request Was there a request for admission?: No Disposition Plan Disposition Plan: Discharge Discharge Attestation Discharge Attestation: The patient and all family members were given an opportunity to ask questions and understood the discharge instructions. Discharge instructions specifically effects, indications for sooner follow up or return to the emergency department, and the expected course of current diagnosis. Patient condition: Stable Discharge Plan Plan Patient Disposition: HOME (Self Care) Discharge Disposition comment: Stable Prescriptions/Referrals Prescriptions/Med Rec: New meclizine 50 mg tablet 50 mg PO BID PRN (Reason: dizziness) Qty: 30 0RF No Action amoxicillin 500 mg Capsule 500 mg PO BID ibuprofen 800 mg Tablet 800 mg PO Q8H PRN (Reason: Pain) clarithromycin 500 mg Tablet 500 mg PO BID omeprazole 20 mg Capsule,Delayed Release(Dr/Ec) 20 mg PO BID pseudoephedrine HCl [Sudafed] 30 mg Tablet 30 mg PO Q6H PRN (Reason: Allergy Symptoms) escitalopram oxalate 10 mg Tablet 10 mg PO QDAY [id number]-mgsn [Fioricet] 50-300-40 mg capsule 1 cap PO Q6H PRN (Reason: headache) Qty: 30 0RF ibuprofen 600 mg tablet 600 mg PO Q6H PRN (Reason: pain) Qty: 30 0RF ondansetron 4 mg tablet,disintegrating 4 mg PO Q6H PRN (Reason: nausea and vomiting) Qty: 10 0RF ondansetron 4 mg tablet,disintegrating 4 mg PO Q8H PRN (Reason: nausea and vomiting) Qty: 30 0RF ibuprofen 600 mg tablet 600 mg PO TID PRN (Reason: pain) Qty: 14 0RF ibuprofen 800 mg tablet 800 mg PO Q6H PRN (Reason: pain) Qty: 14 0RF Referrals: Jessica Carroll FNP [Primary Care Provider] - In 1 week Problem List Clinical Impression: Dizziness, Anemia, mild Patient/Caregiver Discharge Instructions Discharge Activity: activity as tolerated Education Materials: Anemia Additional Instructions: Thank you for the opportunity for serving you today. You are stable for discharged . You are advised to: Follow-up with your PCP in 1 to 2 days Return to ED for worsening of symptoms Increase oral fluids Take medication as prescribed Print Language: Bulgarian Stand Alone Forms: Faye Award Info., Patient Portal Info Letter VANDANA/PERINATAL DIRECTOR Supervising Physician PA/PERINATAL DIRECTOR Supervising Physician: MD Ted
[2024-10-21] MEDS: MECLIZINE HCL 25 MG TABLET 50 MG PO (20:02)
== END 2024-10-21 20:08 | disposition home or self-care (01) ==
PROVIDERS: Registered Nurse General Practice; Emergency Provider Emergency Medicine; PCP Registered Nurse
DX: D64.9 Anemia, unspecified (principal); N93.9 Abnormal uterine and vaginal bleeding, unspecified
CPT/HCPCS: 36415; 76830; 80053; 81001; 81025; 85025; 99283; A9270

== ENCOUNTER → 2025-01-17 | Outpatient (CLI) | payer MEDICAID, SELFPAY ==
[2025-01-16 10:49] LABS: Basophils # (Auto) 0.1 Thou/mm3 (0.0-0.2); Basophils % (Auto) 1 % (0-2.5); Eosinophils # (Auto) 0.2 Thou/mm3 (0.0-0.5); Eosinophils % (Auto) 2 % (0-10); Hematocrit 38.5 % (36.0-46.0); Hemoglobin 12.0 g/dL (12.0-16.0); Immature Granulocytes Auto 0.02 Thou/mm3 (0.00-0.00); Lymphocytes # (Auto) 2.7 Thou/mm3 (1.0-4.8); Lymphocytes % (Auto) 34 % (10-50); Mean Corpuscular HGB Conc 31.2 g/dl (31.0-37.0); Mean Corpuscular Hemoglobin 24.5 pg (25.0-35.0); Mean Corpuscular Volume 79 fL (80-100); Monocytes # (Auto) 0.7 Thou/mm3 (0.0-0.8); Monocytes % (Auto) 8 % (0-12); Neutrophils # (Auto) 4.3 Thou/mm3 (1.8-7.7); Neutrophils % (Auto) 55 % (37-80); Nucleated Red Blood Cell # 0.00 Thou/mm3 (0.00-0.00); Nucleated Red Blood Cell % 0 /100 WBC (0); Platelet Count 287 Thou/mm3 (140-440); RDW Standard Deviation 47.1 fL (36.4-46.3); Red Blood Count 4.90 Miln/mm3 (4.00-5.20); White Blood Count 7.9 Thou/mm3 (3.6-11.0)
[2025-01-16 10:50] LABS: INR 1.1 (0.9-1.3); Partial Thromboplastin Time 29.6 Seconds (22.0-36.0); Prothrombin Time 11.4 Seconds (9.0-12.2)
[2025-01-16 11:15] LABS: HCG,Qualitative Serum Negative
--- NOTE | 2025-01-17 10:00 | XR_ITS ---
Examinations: Ultrasound-guided percutaneous breast biopsy, left breast 8:00 nodule (Sonography limited INDICATIONS: BI-RADS 4 suspicious nodule 8 o'clock position left breast on breast sonogram October 04, 2024. Exam date and time: January 17, 2025, 1035 hours. Informed consent provided. Technique: A timeout was completed verifying correct patient, procedure, site, positioning, and special equipment if applicable Informed consent provided. The patient was placed in a supine position for the breast biopsy. Sonographic images of the breast were performed for localization of the suspicious nodule The patient's breast was prepped and draped in sterile fashion. Maximum sterile barrier technique, hand hygiene, ultrasound sterile technique 1% lidocaine was used to anesthetize the skin and breast adjacent to the suspicious nodule. Utilizing ultrasonographic guidance, 8 core biopsies were obtained of the suspicious nodule utilizing an 18-gauge BioPince needle. The specimens appears satisfactory. US guided breast biopsy marker placement. Estimated blood loss 3 cc. The patient tolerated the procedure well and there were no complications. Impression: Successful ultrasound-guided percutaneous breast biopsy, left breast 8:00 Ultrasound guided breast biopsy marker placement.
== END | disposition home or self-care (01) ==
LOC: SDIM 09:46
PROVIDERS: Radiology Diagnostic Radiology; PCP Registered Nurse; Referring Provider Registered Nurse; Visit Provider Registered Nurse
DX: C50.312 Malignant neoplasm of lower-inner quadrant of left female breast (principal); Z17.1 Estrogen receptor negative status [ER-]; Z17.22 Progesterone receptor negative status; N63.24 Unspecified lump in the left breast, lower inner quadrant
CPT/HCPCS: 19083; 36415; 84703; 85025; 85610; 85730; A4648

== ENCOUNTER 2025-02-13 08:24 | Outpatient (RCR) | payer MEDICAID, SELFPAY ==
--- NOTE | 2025-02-14 08:34 | CTCCONSULT_ITS ---
Patient: JAVON ENG : 1985 MR#: [id number] Page 3 of 5 CONSULTATION NOTE DATE OF CONSULTATION: 02/13/2025 NAME: JAVON ENG ACCOUNT: [id number] : 1985 AGE: 39 REFERRING PHYSICIAN: Jessica Carroll MD PRIMARY PHYSICIAN: Jessica Carroll MD REASON FOR VISIT: New diagnosis of breast cancer ONCOLOGY HISTORY: DIAGNOSIS: Malignant neoplasm of unspecified site of left female breast [ICD10] C50.912 DATE OF DIAGNOSIS: STAGE/TNM: IIB T3 N0 M0 TREATMENT HISTORY: Care?Plan Start?Date Cycle Day Intent TNBC?Pembro?17?cy?TaxCar?4?cy?AC?4?cy?Keynote?522 02/13/2025 1 21 Induction-Primary HISTORY OF PRESENT ILLNESS: History of Present Illness Javon is a female patient with a newly diagnosed breast cancer who presents for oncology consultation and treatment planning he has been living in the [place] for 18 years and has three children - two sons and one daughter. She reports that her last menstrual period was from January 20 to February 03, which was prolonged and likely due to implant failure. She has not had genetic testing completed, nor has her sister. A biopsy was performed during a previous visit. She does not currently have a port for treatment administration. Patient self palpated the mass. Medical History - Mother diagnosed with uterine or cervical cancer in [place] - Reproductive history: Last menstrual period from January 20 to February 03, described as prolonged likely due to implant failure - Mother of three children (2 sons and 1 daughter) - Patient has been living in current location for 18 years Surgical History - Breast biopsy performed Family History - Mother: History of uterine or cervical cancer (diagnosed in [place]) Social History - Living Situation: Has been living in current location for 18 years - Family Structure: Has 2 sons and 1 daughter Review of Systems Genitourinary: Positive for prolonged menstrual period from January 20 to February 03. OTHER MEDICAL HISTORY/CONDITIONS: surgery at 2 months Rt side lung 01/17/25 breast bx FAMILY HISTORY: Mother:?cervical?cancer Sibling:?sister-breast?cancer Cancer?History:?patient-breast?cancer SOCIAL HISTORY: Education?Level:?Completed something less than 8th grade Marital?Status:?Life?Partner CHRONIC MANAGER HISTORY: Menarche?-?Age:?12 Date?LMP:?01/20/2025 Date?of?last?pap?smear:?2022 :?4 Live?Births:?3 Age?1st?:?19 Nipple?discharge:?N-No MEDICATIONS: 1. hydroxyzine HCl - 25 mg 1 tab As directed 2. loratadine - 10 mg 1 tab Daily 3. terbinafine HCl - 250 mg 1 tab Daily?Palabra Meds? Medications Last Reconciled by Lara Lan MD on 02/13/2025 ALLERGIES: quetiapine REVIEW OF SYSTEMS: A complete 14-point review of systems was performed and is negative except as noted in interval history. PHYSICAL EXAMINATION: VITAL SIGNS: Temperature?97.2, B/P?106/71, Height?61?inches, Oxygen?Saturation?98% Weight?192?lbs PAIN: 3 - Between mild and moderate pain ECOG Performance Status: 0 - Asymptomatic and fully active GENERAL APPEARANCE: Appears well, in no apparent distress, appropriately interactive. HEENT: Normocephalic, no temporal wasting, normal conjunctiva, no scleral icterus, normal hearing, lips without lesions, neck normal range of motion. CARDIOVASCULAR: Not assessed. PULMONARY: Normal respiratory effort, no respiratory distress or use of accessory muscles, speaking in full sentences, no tachypnea. EXTREMITIES: No pedal edema or cyanosis. SKIN: Normal skin appearance. NEUROLOGIC: Alert and oriented x4. PSHYCHIATRIC: Appropriate affect, mood normal, behavior normal, intact thought and speech. LABORATORY DATA: I have personally reviewed and interpreted each of the patient?s relevant lab tests, abnormal findings are below: Date ASSESSMENT/PLAN: Javon presents with aggressive triple-negative breast cancer with a 6 by 8 centimeter mass in the left breast, requiring immediate initiation of neoadjuvant chemotherapy and immunotherapy. Triple-negative breast cancer likely stage II Assessment: Patient has aggressive, fast-growing triple-negative breast cancer with a 6 by 8 centimeter mass in the left breast. The tumor size and aggressive nature necessitate immediate treatment initiation. Patient's sister also diagnosed with breast cancer who is a patient in the clinicTreatment approach focuses on neoadjuvant therapy to shrink the tumor prior to surgical intervention, with goal of achieving complete pathologic response before surgery. Plan: - Place port for chemotherapy access (to be performed by Dr. Santiago or radiologist depending on insurance) - Initiate neoadjuvant chemotherapy and immunotherapy immediately after port placement to reduce recurrence risk - Obtain MRI of breast for staging - Obtain MRI of brain for metastatic workup - Obtain whole body CT scan to rule out distant metastases - Refer to radiation oncology after surgical resection - Maintain treatment compliance and follow all instructions - Offer second opinion consultation if desired Menstrual irregularity Assessment: Patient experienced prolonged menstrual period from January 20 to February 03, likely secondary to contraceptive implant failure. Chemotherapy treatment is expected to cause amenorrhea. Plan: - Anticipate chemotherapy-induced amenorrhea - Refer to gynecology for possible implant removal ORDERS: Order # Description [id number] CBC + Comprehensive Metabolic Panel [id number] Lab Appointment [id number] CBC + Comprehensive Metabolic Panel [id number] Lab Appointment [id number] CBC + Comprehensive Metabolic Panel [id number] Lab Appointment [id number] CBC + Comprehensive Metabolic Panel [id number] Lab Appointment [id number] CBC + Comprehensive Metabolic Panel [id number] Lab Appointment [id number] CBC + Comprehensive Metabolic Panel [id number] Lab Appointment [id number] CBC + Comprehensive Metabolic Panel [id number] Lab Appointment [id number] CBC + Comprehensive Metabolic Panel [id number] Lab Appointment [id number] CBC + Comprehensive Metabolic Panel [id number] Lab Appointment [id number] CBC + Comprehensive Metabolic Panel [id number] Lab Appointment [id number] CBC + Comprehensive Metabolic Panel [id number] Lab Appointment [id number] Cardiac ECHO [id number] CBC + Comprehensive Metabolic Panel [id number] Lab Appointment [id number] CBC + Comprehensive Metabolic Panel [id number] Lab Appointment [id number] CBC + Comprehensive Metabolic Panel [id number] Lab Appointment [id number] CBC + Comprehensive Metabolic Panel [id number] Lab Appointment [id number] Cardiac ECHO [id number] CBC + Comprehensive Metabolic Panel [id number] Lab Appointment [id number] CBC + Comprehensive Metabolic Panel [id number] Lab Appointment [id number] CBC + Comprehensive Metabolic Panel [id number] Lab Appointment [id number] CBC + Comprehensive Metabolic Panel [id number] Lab Appointment [id number] CBC + Comprehensive Metabolic Panel [id number] Lab Appointment [id number] CBC + Comprehensive Metabolic Panel [id number] Lab Appointment [id number] CBC + Comprehensive Metabolic Panel [id number] Lab Appointment [id number] CBC + Comprehensive Metabolic Panel [id number] Lab Appointment [id number] CBC + Comprehensive Metabolic Panel [id number] Lab Appointment RETURN TO CLINIC: I reviewed the diagnosis, prognosis, and recommended treatment/procedure options with the patient (and/or their legal employee's representative), including the potential benefits, risks, side effects and alternative therapies. We also discussed the option of no treatment and the possibility of clinical trial participation, if applicable. All questions were addressed, and they demonstrated understanding. They provided informed consent to proceed with the proposed plan of care. BILLING AND COMPLIANCE: I reviewed external records from providers outside my specialty as summarized above. I spent a total of 50 minutes on this patient?s care on the day of their visit excluding time spent related to any billed procedures. This time includes time spent with the patient as well as time spent documenting in the medical record, reviewing patients records and tests, obtaining history, placing orders, communicating with other healthcare professionals, counseling the patient, family or caregiver, and/or care coordination for the diagnoses above. Electronically Signed by: Juice Vogel MD T: 8:31 AM CC: PCP: Jessica Carroll Referring: Jessica Carroll This document was completed utilizing speech recognition software. Grammatical errors, random word insertions, pronoun errors, and incomplete sentences are an occasional consequence of this system due to software limitations, ambient noise, and hardware issues. Any formal questions or concerns about the content, text or information contained within the body of this dictation should be directly addressed to the provider for clarification.
== END 2025-02-19 23:59 | disposition home or self-care (01) ==
LOC: SCTC 08:24
PROVIDERS: PCP Registered Nurse; Referring Provider Registered Nurse; Visit Provider Internal Medicine Hematology & Oncology
DX: C50.312 Malignant neoplasm of lower-inner quadrant of left female breast (principal); Z17.421 Hormone receptor negative with human epidermal growth factor receptor 2 negative status
CPT/HCPCS: 99214; G0463

== ENCOUNTER → 2025-02-28 | Outpatient (CLI) | payer MEDICAID, SELFPAY ==
--- NOTE | 2025-02-28 15:30 | ECHO_ITS ---
Patient Info Name: Ella Lin Age: 39 years : 1985 Gender: Female Ht: 155 cm Wt: 87 kg BSA: 1.98 m2 BP: 118 / 77 mmHg HR: 67 bpm Exam Date: 02/28/2025 4:36 PM Admit Date: 02/28/2025 Site: [facility] Room Number: OP Patient Status: O Exam Type: CA echo doppler complete Wildlife Forensic Geneticist: Dora Calloway Ordering Physician: Juice Vogel Referring Physician: Juice Vogel Study Info Indications Malignant neoplasm of unspecified site of left female breast - Primary Location: SD[facility] Left Ventricular Outflow Tract Name Value Normal LVOT 2D LVOT Diameter 1.9 cm LVOT Doppler LVOT Peak Velocity 89 cm/s LVOT Mean Gradient 2 mmHg LVOT VTI 20 cm LVOT VTI/AV VTI Ratio 0.8 LVOT Stroke Volume 58 ml Pulmonic Valve Name Value Normal PV Doppler PV Peak Velocity 95 cm/s Mitral Valve Name Value Normal MV Doppler MV Decel Nuckolls 324 cm/s2 MV PHT 54 ms MV Area (PHT) 4.1 cm2 4.0-5.0 MV Diastolic Function MV E Peak Velocity 60 cm/s MV A Peak Velocity 63 cm/s MV E/A 1.0 MV Annular TDI MV Septal e' Velocity 7.8 cm/s MV E/e' (Septal) 7.7 MV Lateral e' Velocity 10.9 cm/s MV E/e' (Lateral) 5.5 MV e' Average 9.37 cm/s MV E/e' (Average) 6.6 Tricuspid Valve Name Value Normal TV Regurgitation Doppler TR Peak Velocity 186 cm/s Estimated PAP/RSVP RA Pressure 3 mmHg <=5 PA Systolic Pressure 17 mmHg <36 RV Systolic Pressure 17 mmHg <36 TV Annular TDI TV Lateral Kailyn s' Velocity 13.9 cm/s >=9.5 Aortic Valve Name Value Normal AV 2D/MM AV Cusp Sep (MM) 1.6 cm AV Doppler AV Peak Velocity 129 cm/s AV Mean Gradient 4 mmHg AV VTI 27 cm AV Area (Cont Eq VTI) 2.1 cm2 >=3.0 AV Area (Cont Eq Obed) 2.0 cm2 AV DI (Obed) 0.69 AV Regurgitation 2D LVOT Area 2.8 cm2 Ventricles Name Value Normal LV Dimensions 2D/MM IVS Diastolic Thickness (2D) 0.9 cm 0.6-0.9 LVID Diastole (2D) 5.3 cm 3.8-5.2 LVIW Diastolic Thickness (2D) 0.8 cm 0.6-0.9 LVID Systole (2D) 3.7 cm 2.2-3.5 LVOT Diameter 1.9 cm LV Mass (2D Cubed) 162.11 g 67.00-162.00 LV Mass Index (2D Cubed) 82 g/m2 43-95 Relative Wall Thickness (2D) 0.30 <=0.42 IVS/LVIW Diastolic Thickness (2D) 1.13 0.00-1.50 LV Fractional Shortening/Ejection Fraction 2D/MM LV Fractional Shortening (2D) 30 % 27-45 LV EF (2D Teichholz) 57 % RV Dimensions 2D/MM TV Lateral Kailyn s' Velocity 13.9 cm/s >=9.5 Atria Name Value Normal LA Dimensions LA Volume (4C A-L) 19 ml LA Volume (BP A-L) 26 ml Left Ventricle Left ventricular chamber dimension is normal. Left ventricular systolic function is normal with visually estimated ejection fraction of 55-60%. There is normal geometry noted in the left ventricle. Left ventricular segmental wall motion is normal. There is normal diastolic function in the left ventricle. Right Ventricle Right ventricular chamber dimension is normal. Right ventricular systolic function is normal. Left Atrium Left atrial chamber dimension is normal. Right Atrium Right atrial chamber dimension is normal. Aortic Valve The aortic valve is trileaflet. There is no aortic valve sclerosis. There is no aortic valve stenosis with a peak velocity of 129 cm/s, mean gradient of 4 mmHg, and aortic valve area of 2.1 cm2. There is no aortic valve regurgitation. Pulmonic Valve The pulmonic valve is normal. There is no pulmonic valve stenosis. There is no pulmonic regurgitation. Mitral Valve The mitral valve has normal leaflets. There is no mitral valve stenosis. There is trace mitral valve regurgitation. Tricuspid Valve The tricuspid valve leaflets are normal. There is no tricuspid valve stenosis. There is trace tricuspid valve regurgitation. No pulmonary hypertension, estimated pulmonary arterial systolic pressure is 17 mmHg and systemic blood pressure of 118 mmHg in systole. Pericardium/Pleural The pericardium appears normal. There is no pericardial effusion. No pleural effusion visualized. Inferior Vena Cava Normal inferior vena cava with >50% collapse upon inspiration consistent with normal right atrial pressure, 3 mmHg. Aorta The aortic measurements are indexed to age and body surface area. The aortic root at the sinus of Valsalva is not well visualized. The prox ascending aorta is not well visualized. Summary 1. Left ventricle size is normal and systolic function is normal. Estimated ejection fraction is 55-60%. There is normal diastolic function. 2. Right ventricle chamber size is normal and systolic function is normal. Estimated RVSP is 17 mmHg. 3. Trace MR. Trace TR. 4. Normal IVC with estimated RA pressure 3 mmHg. Report Signatures Finalized by Edvin Tate on 02/28/2025 08:37 PM
== END | disposition home or self-care (01) ==
PROVIDERS: PCP Registered Nurse; Referring Provider Internal Medicine Hematology & Oncology; Visit Provider Internal Medicine Hematology & Oncology
DX: I08.1 Rheumatic disorders of both mitral and tricuspid valves (principal); C50.912 Malignant neoplasm of unspecified site of left female breast
CPT/HCPCS: 93306

== ENCOUNTER 2025-03-02 07:08 | Outpatient (CLI) | payer MEDICAID, SELFPAY ==
[2025-02-28 16:07] VITALS: BMI 36.2
[2025-03-01 12:33] LABS: Basophils # (Auto) 0.0 Thou/mm3 (0.0-0.2); Basophils % (Auto) 1 % (0-2.5); Eosinophils # (Auto) 0.2 Thou/mm3 (0.0-0.5); Eosinophils % (Auto) 2 % (0-10); Hematocrit 38.6 % (36.0-46.0); Hemoglobin 12.3 g/dL (12.0-16.0); Immature Granulocytes Auto 0.03 Thou/mm3 (0.00-0.00); Lymphocytes # (Auto) 2.5 Thou/mm3 (1.0-4.8); Lymphocytes % (Auto) 30 % (10-50); Mean Corpuscular HGB Conc 31.9 g/dl (31.0-37.0); Mean Corpuscular Hemoglobin 24.7 pg (25.0-35.0); Mean Corpuscular Volume 78 fL (80-100); Monocytes # (Auto) 0.6 Thou/mm3 (0.0-0.8); Monocytes % (Auto) 7 % (0-12); Neutrophils # (Auto) 4.9 Thou/mm3 (1.8-7.7); Neutrophils % (Auto) 59 % (37-80); Nucleated Red Blood Cell # 0.00 Thou/mm3 (0.00-0.00); Nucleated Red Blood Cell % 0 /100 WBC (0); Platelet Count 258 Thou/mm3 (140-440); RDW Standard Deviation 49.0 fL (36.4-46.3); Red Blood Count 4.98 Miln/mm3 (4.00-5.20); White Blood Count 8.2 Thou/mm3 (3.6-11.0)
[2025-03-01 12:40] LABS: INR 1.1 (0.9-1.3); Partial Thromboplastin Time 27.3 Seconds (22.0-36.0); Prothrombin Time 11.3 Seconds (9.0-12.2)
[2025-03-01 12:45] LABS: HCG,Qualitative Serum Negative
[2025-03-02] VITALS (20 sets, daily range): BP systolic 103–136; BP diastolic 48–79; PULSE 52–75; RESP 12–19; TEMP 36.3–36.5; O2SAT 93–100
--- NOTE | 2025-03-02 08:00 | XR_ITS ---
Exam: Fluoroscopic and ultrasound-guided right IJ port placement. Date: 03/02/2025, 8:28 a.m. Indication: Access for chemotherapy. Fluoroscopy time 1. 1 minutes Dose: 11.46 Technique: After a discussion of risks and benefits informed consent was obtained from the patient. Patient was brought to the angiography suite and placed supine on the exam table. Preliminary ultrasound evaluation showed the right IJ to be patent. The skin overlying the right neck and upper chest was cleaned and draped in normal sterile surgical fashion. 20 cc's of 1% lidocaine was used for local anesthesia. Conscious sedation was begun with direct nursing supervision. Using ultrasound guidance access to the IJ was obtained with a micropuncture needle. An 0.018 wire was advanced through the needle into the SVC and the needle was withdrawn. A 5 Armenian micropuncture change sheath was advanced over the wire, and the wire removed. The sheath was capped. A 5 cm incision was made over right chest. Small pouch was created with a combination of sharp and blunt dissection. The port and catheter tubing were attached to the tunneling device and pulled underneath the skin and exiting at the right IJ access site. Right IJ 5 inch sheath was replaced with a 7 Armenian peel-away sheath. Catheter was advanced through the peel-away sheath and peel-away sheath was removed. Distal catheter tip was appropriately positioned at the cavoatrial junction. The port pocket was closed with deep interrupted sutures using 2-0 Vicryl and superficial running sutures utilized 3-0 Vicryl. IJ access site was closed with 3-0 Vicryl and Dermabond glue Port flushed and aspirated easily and is ready for use. Impression: Successful placement of right IJ port as above with distal tip at the caval atrial junction Catheter is ready for use.
[2025-03-02] MEDS: SODIUM CHLORIDE 0.9% 500 ML 500 ML 20 ML IV (08:37)
[2025-03-02] MEDS: HEPARIN SOD LOCK SYR 100 UNIT/ML 500 UNIT STFIELD (09:13)
[2025-03-02] MEDS: fentaNYL CIT INJ 50 mCg/ML AMP 2ML 100 MCG IVP (09:16)
[2025-03-02] MEDS: MIDAZOLAM INJ 1 MG/ML VIAL 2 ML IVP (09:16)
[2025-03-02] MEDS: LIDOCAINE INJ PF 1% 30 ML VIAL EPID (09:20)
[2025-03-02] MEDS: ceFAZolin/D5W 1 GM IVPB 1 GM/50 ML BAG IV (09:20)
== END 2025-03-02 10:52 | disposition home or self-care (01) ==
PROVIDERS: Radiology Diagnostic Radiology; PCP Registered Nurse; Referring Provider Internal Medicine Hematology & Oncology; Visit Provider Internal Medicine Hematology & Oncology
DX: C50.912 Malignant neoplasm of unspecified site of left female breast (principal)
CPT/HCPCS: 36571; 99152; 36415; 76937; 77001; 84703; 85025; 85610; 85730; 99153; A4649; C1769; C1788; C1894; J0689; J1642; J2250; J3010; J3490; J7050; J7999

== ENCOUNTER 2025-03-03 23:22 | Emergency (ER) | payer MEDICAID, SELFPAY ==
[2025-03-03 23:24] VITALS: BMI 31.9
[2025-03-04 00:43] VITALS: BP 124/82; PULSE 75; RESP 18; TEMP 36.6; O2SAT 98
[2025-03-04 00:58] VITALS: BP 146/77; PULSE 68; RESP 18; TEMP 36.6; O2SAT 98
[2025-03-04 01:00] VITALS: BP 124/82; PULSE 75; RESP 18; TEMP 36.6; O2SAT 98
[2025-03-04] MEDS: FAMOTIDINE 20 MG TABLET PO (01:16)
--- NOTE | 2025-03-04 02:10 | EDNOTE_ITS ---
ED Skin Abcess FB-RME/HPI General Chief complaint: Skin/Abscess/Foreign Body Stated complaint: RASH AND ITCHING TO PORT TO RIGHT UPPER CHEST Time Seen by Provider: 03/04/25 01:00 Arrival date/time: 03/03/25 23:22 39F with history of psych and cancer presents to ED with itchiness around chemo port that was placed 2 days ago. There is also some pain where IV was placed above port. Patient denies fevers/chills. Limitations: no limitations Related Data Home Medications ?Medication ?Instructions ?Recorded ?Confirmed loratadine 10 mg tablet 10 mg PO DAILY 03/02/2502/20 penicillin V potassium 500 mg 500 mg PO BID 03/02/25 1 05/03/24 tablet terbinafine HCl 250 mg tablet 250 mg PO QDAY 03/02/25 03/02/25 Previous Rx's ?Medication ?Instructions ?Recorded mupirocin 2 % topical ointment 1 applic topical BID 1 week #15 03/04/25 (Centany) grams prednisone 20 mg tablet 20 mg PO BID 4 days #8 tabs 03/04/25 Allergies Allergy/AdvReac Type Severity Reaction Status Date / Time quetiapine Allergy Severe Swelling Verified 03/03/25 23:24 of Lip/Tongue/Throat shrimp Allergy Verified 03/03/25 23:24 Review of Systems Review of Systems Systems Reviewed: All systems reviewed, normal except as documented Integumentary/Breasts Skin/Breast: Reports as per HPI, Reports rash and Reports skin pain Past Medical History Past Medical History NEUROLOGIC: Positive Migraine; Negative Neurological Disorders, Cerebrovascular Accident or Transient Ischemic Attacks (TIA) CARDIAC: Negative Cardiac Disorders, Myocardial Infarction, Cardiac Arrhythmia o r Congestive Heart Failure RESPIRATORY: Positive Pneumonia; Negative Chronic Obstructive Pulmonary Disease (COPD) or Asthma GASTROINTESTINAL: Positive Gastrointestinal Disorders and Gastroesophageal Reflux Disease (H. Pylori); Negative Liver Cancer or Pancreatic Cancer GENITOURINARY: Positive Kidney Stones (in past); Negative Genitourinary Disorders or Renal Disease REPRODUCTIVE: Positive Previous Pregnancies (x4 ); Negative Breast Cancer or Endometriosis MUSCULOSKELETAL: Negative Musculoskeletal Disorders ENT: Negative Blind or Deafness ENDOCRINE: Negative Endocrine Disorders, Diabetes Mellitus Type 1 or Diabetes Mellitus Type 2 HEMATOLOGIC: Negative Blood Disorders, Anemia or Sickle Cell Disease PSYCHO/SOCIAL: Positive Depression and Anxiety OTHER HISTORY: Positive Cancer; Negative Hospitalization, Down Syndrome, Developmental Delay, Blood Transfusions, Anesthesia Reactions, Radiation Therapy or Breast Cancer Surgical History SURGICAL: Negative Cardiac Surgery, Pacemaker, Endocrine Surgery, Abdominal Surgery, Joint Replacement, Hysterectomy, Tubal Ligation or Section Social History SMOKING STATUS: Never smoker SUBSTANCE USE: does not use ED Exam General Limitations: Present no limitations General appearance: Present alert and in no apparent distress Head Head exam: Present atraumatic Neck Neck exam: Present normal inspection, full ROM and trachea midline Chest Chest inspection: Present symmetric chest wall rise and other (R chemo port site ) Neurological Exam Neurological exam: Present alert and oriented X3 Psychiatric Psychiatric exam: Present normal affect and normal mood Skin Skin exam: Present warm, dry, intact, normal color and rash Course Quality Measures none Orders Category Date Time Status DiphenhydrAMINE [Benadryl] Med 03/04/25 01:04 Discontinued 25 mg PO X1 ONE Famotidine [Pepcid] Med 03/04/25 01:04 Discontinued 20 mg PO X1 ONE dexAMETHasone INJ [Decadron Inj] Med 03/04/25 01:04 Discontinued 10 mg PO X1 ONE Vital Signs Vital signs: Vital Signs Temperature 98 F 03/04/25 00:43 Pulse Rate 75 03/04/25 00:43 Respiratory Rate 18 03/04/25 00:43 Blood Pressure 124/82 03/04/25 00:43 Pulse Oximetry (%) 98 03/04/25 00:43 Oxygen Delivery Method Room Air 03/04/25 00:43 O2 at 98% on RA and WNLs Skin / Abscess / Foreign Body MDM Narrative MDM Narrative:: 39F with history of psych and cancer presents to ED with itchiness around chemo port that was placed 2 days ago. There is also some pain where IV was placed above port. Patient denies fevers/chills. Physical exam reveals non-specific rash around port area. There is a 2 cm area of dried blood, tenderness, and bruising about 6 inch above port site on R side of chest. Patient is afebrile, calm, and alert. Likely reaction to something used during port insertion such as the iodine or tape used to secure port. Area above it likely IV insertion site. Will give ABX cream for the top area only given pain rather than itching, though likely traumatic rather than infectious. Patient data External records reviewed:: [facility] previous records Clinical information provided by:: patient Social determinants that could affect healthcare access:: mental health Patient has the following chronic illnesses:: psych and cancer How is presenting disease/condition affected by chronic disease/condition?: exacerbated by Evaluation data The following diagnostics were reviewed and interpreted by me:: other (specify) (none) Lab and/or radiology exams considered but not ordered:: not ordered Interpretation Summary: n/a Medications / Prescriptions Medications or Prescriptions considered but not ordered:: ordered Medication administrations:: Medication Administration History Discontinued Medications Dexamethasone Sodium Phosphate (Dexamethasone Sod Phos Inj 10 Mg/Ml Vial) 10 mg PO X1 ONE Stop: 03/04/25 01:05 Last Admin: 03/04/25 01:16 Dose: 10 mg Documented By: BD Comments: given po Diphenhydramine HCl (Diphenhydramine 25 Mg Capsule) 25 mg PO X1 ONE Stop: 03/04/25 01:05 Last Admin: 03/04/25 01:16 Dose: 25 mg Documented By: BD Famotidine (Famotidine 20 Mg Tablet) 20 mg PO X1 ONE Stop: 03/04/25 01:05 Last Admin: 03/04/25 01:16 Dose: 20 mg Documented By: BD above Consultations Consultation(s) initiated? (list below): No Diagnosis Skin/Abscess Differential Diagnosis: abscess of skin or subcutaneous tissue, viral exanthem, dermatophytosis, urticaria, herpes zoster, allergic reaction to drug, cellulitis, eczema, insect bites, impetigo, contact dermatitis and other (dermatitis) Most likely diagnosis given after review of the tests above:: dermatitis Admission Indicated Admission indicated?: not indicated Admission Request Was there a request for admission?: No Disposition Plan Disposition Plan: Discharge Discharge Attestation Discharge Attestation: The patient and all family members were given an opportunity to ask questions and understood the discharge instructions. Discharge instructions specifically effects, indications for sooner follow up or return to the emergency department, and the expected course of current diagnosis. Patient condition: Stable Discharge Plan Plan Patient Disposition: HOME (Self Care) Discharge Disposition comment: Stable Prescriptions/Referrals Prescriptions/Med Rec: New mupirocin [Centany] 2 % ointment 1 applic topical BID 7 Days Qty: 15 0RF Rx Instructions: Put cream only on upper scar area, no near port prednisone 20 mg tablet 20 mg PO BID 4 Days Qty: 8 0RF No Action terbinafine HCl 250 mg tablet 250 mg PO QDAY loratadine 10 mg tablet 10 mg PO DAILY penicillin V potassium 500 mg tablet 500 mg PO BID Patient Comments: por 10 pena Problem List Clinical Impression: Dermatitis Patient/Caregiver Discharge Instructions Education Materials: ED Dermatitis Non Specific Rash Additional Instructions: Please follow-up with PCP within 24-48 hours and return immediately if symptoms worsen. Take OTC antihistamine as needed until symptoms resolve. Finish entire steroid course. Print Language: Samoan Stand Alone Forms: Patient Portal Info Letter VANDANA/JESSENIA Supervising Physician VANDANA/JESSENIA Supervising Physician: Dr. Davidson
== END 2025-03-04 01:35 | disposition home or self-care (01) ==
LOC: SERX 03-04 01:22
PROVIDERS: Emergency Provider Emergency Medicine; PCP Registered Nurse
DX: L30.9 Dermatitis, unspecified (principal)
CPT/HCPCS: 99282; J1100; A9270

== ENCOUNTER → 2025-03-03 | Outpatient (CLI) | payer MEDICAID, SELFPAY ==
[2025-03-03 12:36] LABS: HCG Qualitative,Urine Negative
--- NOTE | 2025-03-03 14:00 | XR_ITS ---
EXAMINATION: Bilateral breast MRI pre and post contrast Date and time: March 03, 2025, 1441 hours INDICATIONS: Diagnosis left breast cancer December 2024, left breast biopsy 8:00 nodule 06/17/2024, left breast sonogram October 04, 2024 BI-RADS 4 suspicious nodule 8 o'clock position left breast 16 x 10 x 10 mm Technique and findings: Bilateral breast MRI images pre and post 18 cc gadolinium Heterogeneous breast signal with mild background breast enhancement Magnetic susceptibility artifact medial right breast secondary to breast biopsy marker Lower left breast 19 x 14 mm nodule partially indistinct margins left breast anterior depth Kinetics analysis curves postcontrast demonstrate rapid wash-in and washout on the left breast 7-8 o'clock nodule No chest wall mass No axillary lymphadenopathy pathologic No right breast mass IMPRESSION: BI-RADS Category 5, 19 x 14 mm nodule 7 to 8 o'clock position left breast, biopsy positive for carcinoma No pathologic axillary lymphadenopathy No chest wall mass No right breast mass
== END | disposition home or self-care (01) ==
PROVIDERS: PCP Registered Nurse; Referring Provider Internal Medicine Hematology & Oncology; Visit Provider Internal Medicine Hematology & Oncology
DX: N63.24 Unspecified lump in the left breast, lower inner quadrant (principal); C50.912 Malignant neoplasm of unspecified site of left female breast; Z32.00 Encounter for pregnancy test, result unknown
CPT/HCPCS: 77049; 81025; A9577; C8908

== ENCOUNTER → 2025-03-14 | Outpatient (CLI) | payer MEDICAID, SELFPAY ==
--- NOTE | 2025-03-14 12:00 | XR_ITS ---
EXAMINATION: MRI brain with intravenous contrast TECHNIQUE: Multiple axial sagittal coronal brain MRI images post intravenous administration 17 cc gadolinium Date and time: March 14, 2025, 12:21 p.m. 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 No mass effect upon the ventricular system No effacement cortical sulcal markings Fourth ventricle midline Cerebellar tonsils normal in position No abnormal cerebellar or cerebral enhancing lesions IMPRESSION: Negative for acute hemorrhage mass effect or midline shift No enhancing cerebellar or cerebral metastatic lesions
[2025-03-14 12:02] LABS: HCG Qualitative,Urine Negative
== END | disposition home or self-care (01) ==
PROVIDERS: PCP Registered Nurse; Referring Provider Internal Medicine Hematology & Oncology; Visit Provider Internal Medicine Hematology & Oncology
DX: R51.9 Headache, unspecified (principal); C50.912 Malignant neoplasm of unspecified site of left female breast; Z32.00 Encounter for pregnancy test, result unknown
CPT/HCPCS: 70552; 81025; A9577